=== PATIENT | male | born 1985 | race Caucasian/White ===

== ENCOUNTER 2023-01-04 02:29 | Emergency (ER) | payer OTHER ==
[~2023-01-04] VITALS: Ht 175.3 cm; Wt 91.0 kg
[2023-01-04 02:45] VITALS: BP 142/85; PULSE 111; RESP 18; TEMP 98.7; O2SAT 100
== END 2023-01-04 05:31 | disposition home or self-care (01) ==
LOC: ER 02:49
DX: R04.0 Epistaxis (principal); R51.9 Headache, unspecified; Y04.0XXA Assault by unarmed brawl or fight, initial encounter; Y93.89 Activity, other specified; Y92.89 Other specified places as the place of occurrence of the external cause; Y99.8 Other external cause status
CPT/HCPCS: 99284